=== PATIENT | male | born 1955 | race Caucasian/White ===

== ENCOUNTER 2016-05-16 10:47 | Emergency (ER) | payer MEDICARE, MEDICAID ==
[2016-05-16] MEDS ORDERED: NITROGLYCERIN SUBLINGUAL 0.4 MG BOTTLE OF 25. SL ONE (11:15)
[2016-05-16 11:18] VITALS: BP 99/65
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
--- NOTE | 2016-05-16 14:17 | EKG ---
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
== END 2016-05-16 11:30 | disposition home or self-care (01) ==
LOC: ER 10:47
DX: G89.4 Chronic pain syndrome (principal); R07.89 Other chest pain; I25.10 Atherosclerotic heart disease of native coronary artery without angina pectoris; I10 Essential (primary) hypertension; I25.2 Old myocardial infarction
CPT/HCPCS: 84484; 93005; 99283-25